=== PATIENT | male | born 1955 | race Caucasian/White ===

== ENCOUNTER → 2017-11-22 | Outpatient (CLI) | payer OTHER ==
[2017-11-22 15:08] LABS: Vitamin D 25 Hydroxy 74.3 ng/mL (30.0-100.0)
== END | disposition home or self-care (01) ==
LOC: LABWHC1 11-13 15:51
PROVIDERS: ATTEND Psychiatry & Neurology Neurology
DX: R25.1 Tremor, unspecified (principal); R53.83 Other fatigue
CPT/HCPCS: 36415; 82306; 82533; 82607; 84402; 84403

== ENCOUNTER → 2019-04-16 | Outpatient (CLI) | payer MEDICARE, BC ==
--- NOTE | 2019-04-17 10:20 | ECHOF ---
Referral Reason:I49.8 cardiac arrythia MEASUREMENTS -------- HEIGHT: 175.3 cm WEIGHT: 71.7 kg BP: 128/62 RVIDd: 2.8 cm (< 3.3) IVSd: 1.0 cm (0.6 - 1.1) LVIDd: 4.5 cm (3.9 - 5.3) LVPWd: 1.0 cm (0.6 - 1.1) IVSs: 1.6 cm LVIDs: 2.7 cm LVPWs: 1.6 cm LA Diam: 3.3 cm (2.7 - 3.8) LAESV Index (A-L): 29.09 ml/m Ao Diam: 3.4 cm (2.0 - 3.7) AV Cusp: 2.1 cm (1.5 - 2.6) MV EXCURSION: 18.330 mm (> 18.000) MV EF SLOPE: 76 mm/s (70 - 150) EPSS: 0.6 cm MV E James: 0.50 m/s MV DecT: 261 ms MV A James: 0.59 m/s MV E/A Ratio: 0.85 RAP: 5.00 mmHg RVSP: 24.94 mmHg FINDINGS -------- Sinus rhythm. This was a technically good study. The left ventricular size is normal. Left ventricular wall thickness is normal. Overall left vent ricular systolic function is normal with, an EF between 60 - 65 %. The right ventricle is normal in size. LA is midly dilated 29-33ml/m2. The right atrium is normal in size. Interatrial and interventricular septum intact. The aortic valve is trileaflet and appears structurally normal. There is trace to mild mitral regurgitation. Mild tricuspid regurgitation present. Right ventricular systolic pressure is normal at < 35 mmHg. Trace/mild (physiologic) pulmonic regurgitation. The aortic root size is normal. Normal inferior vena cava with normal inspiratory collapse consistent with estimated right atrial pre ssure of 5 mmHg. There is no pericardial effusion. CONCLUSIONS -------- 1. Sinus rhythm. 2. This was a technically good study. 3. The left ventricular size is normal. 4. Left ventricular wall thickness is normal. 5. Overall left ventricular systolic function is normal with, an EF between 60 - 65 %. 6. The right ventricle is normal in size. 7. LA is midly dilated 29-33ml/m2. 8. The right atrium is normal in size. 9. Interatrial and interventricular septum intact. 10. The aortic valve is trileaflet and appears structurally normal. 11. There is trace to mild mitral regurgitation. 12. Mild tricuspid regurgitation present. 13. Right ventricular systolic pressure is normal at < 35 mmHg. 14. Trace/mild (physiologic) pulmonic regurgitation. 15. The aortic root size is normal. 16. Normal inferior vena cava with normal inspiratory collapse consistent with estimated right atrial pressure of 5 mmHg. 17. There is no pericardial effusion. HYDROSTATIC TESTER: Tomasa Mayer RDCS
== END | disposition home or self-care (01) ==
LOC: RADECHMAIN 13:50
PROVIDERS: ATTEND Family Medicine
DX: I08.1 Rheumatic disorders of both mitral and tricuspid valves (principal)
CPT/HCPCS: 93306

== ENCOUNTER → 2022-06-14 | Outpatient (CLI) | payer MEDICARE ==
--- NOTE | 2022-06-14 12:05 | MR ---
EXAMINATION TYPE: MR brain wo/w con DATE OF EXAM: 06/14/2022 COMPARISON: MRI brain 11/03/2014. HISTORY: Balance issues. TECHNIQUE: Multiplanar, multisequence images of the brain and brainstem is performed without and with IV contras t, utilizing 8 mL intravenous Gadavist . FINDINGS: Diffusion weighted images demonstrate no evidence of a recent infarct or other diffusion ab normality. There is no extra-axial fluid collection. Scattered T2/FLAIR hyperintensities in the denise ventricular and subcortical white matter which is stable to marginally progressed from prior examinat ion. The ventricular system and cisternal spaces are normal in size and appearance. The brain volume is age appropriate. No abnormal contrast enhancement. Extensive Virchow-Wilber spaces are noted. Midline structures demonstrate normal morphology. The craniocervical junction appears within normal limits. Post contrast images demonstrate no abnormal enhancement. The dural venous sinuses appear pa tent. The visualized sinuses are clear and the globes are intact. IMPRESSION: 1. No acute ischemia or mass identified. 2. Age-related atrophy with nonspecific white matter changes which is stable to marginally progresse d from prior examination likely related to chronic small vessel ischemia.
== END | disposition home or self-care (01) ==
LOC: RADMRIMAIN 10:38
PROVIDERS: ATTEND Psychiatry & Neurology Neurology
DX: G31.9 Degenerative disease of nervous system, unspecified (principal)
CPT/HCPCS: 70553; A9585

== ENCOUNTER 2022-07-06 10:35 | Emergency (ER) | payer MEDICARE ==
[2022-07-06 10:52] VITALS: RESP 20; TEMP 98.4
--- NOTE | 2022-07-06 12:15 | ED ---
Lower Extremity Injury HPI - General Chief Complaint: Extremity Injury, Lower Stated Complaint: lt foot toe injury Time Seen by Provider: 07/06/22 11:57 Source: patient, family, RN notes reviewed, old records reviewed Mode of arrival: wheelchair Limitations: no limitations - History of Present Illness Initial Comments: 67-year-old male presents to the emergency room from urgent care after hyperflexion of his left great toe while walking causing open wound. Denies any other injury. Was sent by urgent care after x-rays told open fracture. Was given tetanus, and 1 gram Rocephin IM. Pressure dressing was applied due to bleeding at urgent care. Patient does have history of tremors, neuropathy, muscular atrophy, right foot drop and hypertension. Does take an aspirin a day. MD Complaint: foot injury (left great toe) -: hour(s) (6) Injury: Foot: Left (great toe) Type of Injury: hyperflexion Severity scale (1-10): 2 Worsens With: movement, palpation Context: other (trip) Treatments Prior to Arrival: other (Urgent care x-ray, tetanus and IM ant ibiotics) - Related Data Home Medications Medication Instructions Recorded Confirmed Carbidopa-Levodopa 25-250 mg 1 tab PO QID 07/06/22 07/06/22 [Sinemet 25-250] Cholecalciferol [Vitamin D3 (125 125 mcg PO DAILY 07/06/22 07/06/22 Mcg = 5000 Iu)] Losartan-Hctz 50-12.5 mg [Hyzaar 1 tab PO DAILY 07/06/22 07/06/22 50-12.5] Omeprazole 40 mg PO DAILY 07/06/22 07/06/22 Vitamin B Complex 1 cap PO DAILY 07/06/22 07/06/22 rOPINIRole HCL [rOPINIRole HCL ER 6 mg PO TID 07/06/22 07/06/22 (XL)] Previous Rx's Medication Instructions Recorded Cephalexin [Keflex] 500 mg PO Q6HR #40 cap 07/06/22 Allergies Allergy/AdvReac Type Severity Reaction Status Date / Time No Known Allergies Allergy Verified 07/06/22 14:54 Review of Systems ROS Statement: Those systems with pertinent positive or pertinent negative responses have been documented in the HPI. ROS Other: All systems not noted in ROS Statement are negative. Past Medical History Past Medical History: Hypertension Additional Past Medical History / Comment(s): Tremors, MA History of Any Multi-Drug Resistant Organisms: None Reported Additional Past Surgical History / Comment(s): jaw surgery Past Anesthesia/Blood Transfusion Reactions: No Reported Reaction Past Psychological History: No Psychological Hx Reported Smoking Status: Never smoker Past Alcohol Use History: None Reported Past Drug Use History: None Reported General Exam Limitations: no limitations, physical limitation (Muscular atrophy and tremors) General appearance: alert, in no apparent distress Head exam: Present: atraumatic Respiratory exam: Absent: respiratory distress, accessory muscle use Cardiovascular Exam: Present: regular rate Left Foot/Toe exam: Present: tenderness, laceration, ecchymosis, deformity (Left great toe DIP fracture) Neurovascular tendon exam: Absent: sensory deficit, extremity cold to touch Gait: not tested/not observed Neurological exam: Present: alert, oriented X3 Psychiatric exam: Present: normal affect, normal mood Skin exam: Present: warm, dry, normal color. Absent: cyanosis, diaphoretic Course Vital Signs 07/06/22 07/06/22 10:49 15:02 Temperature 98.4 F Pulse Rate 85 79 Respiratory 20 20 Rate Blood Pressure 137/74 132/85 O2 Sat by Pulse 97 99 Oximetry - Reevaluation(s) Reevaluation #1: 07/06/22 12:57 Spoke with Dario Montelongo regarding patient. Plan is to reduce dislocation of the great toe and suture wound. Put in ortho shoe. Place patient on Keflex 500 QID for 10 days and follow-up in the office. Time: 12:57 Procedures - Laceration Laceration #1 Consent Obtained: verbal consent Indication: laceration Site: foot (great toe) Description: linear Depth: simple, single layer Anesthetic Used: lidocaine 1% Anesthesia Technique: local infiltration, nerve block (digital) Pre-repair: irrigated extensively Type of Sutures: nylon Size of Sutures: 4-0, 5-0 Number of Sutures: 5 Technique: simple, interrupted Patient Tolerated Procedure: well Medical Decision Making - Medical Decision Making Patient presents from urgent care for possible open fracture of left first metatarsal. Tetanus shot was given at the urgent care along with 1 g of Rocephin IM prior to arrival. He was offered pain medication and declined. 5 sutures to secure nail bed and close laceration after extensive irrigation. Sensation intact. Patient does have decreased motor movement chronically which is the reason for his injury. Foot drop on the right that is chronic. XR interpreted by me shows no acute fracture, disolocation of first MTP joint. I did speak with orthopedics who recommended reduction, antibiotics, ,post-op shoe and follow-up Reduction performed using digital block. Repeat XR shows successful reduction. Radiologist impression no acute fracture or dislocation. Dr. Khan at bedside. Patient's sensation is intact. Bleeding is controlled. Instructed to take antibiotics as prescribed, wear the ortho shoe and follow-up with orthopedics on Saturday. Patient and family members are agreeable to this plan of care. Instructed to return to the emergency room with any new or concerning symptoms. Case discussed with Dr. Khan - Lab Data Result diagrams: 07/06/22 12:37 07/06/22 12:37 Lab Results 07/06/22 07/06/22 07/06/22 Range/Units 12:37 12:37 12:37 WBC 8.0 (3.8-10.6) k/uL RBC 4.82 (4.30-5.90) m/uL Hgb 15.7 (13.0-17.5) gm/dL Hct 46.0 (39.0-53.0) % MCV 95.3 (80.0-100.0) fL MCH 32.6 (25.0-35.0) pg MCHC 34.2 (31.0-37.0) g/dL RDW 13.1 (11.5-15.5) % Plt Count 225 (150-450) k/uL MPV 8.0 Neutrophils % 74 % Lymphocytes % 19 % Monocytes % 4 % Eosinophils % 1 % Basophils % 0 % Neutrophils # 5.9 (1.3-7.7) k/uL Lymphocytes # 1.5 (1.0-4.8) k/uL Monocytes # 0.4 (0-1.0) k/uL Eosinophils # 0.1 (0-0.7) k/uL Basophils # 0.0 (0-0.2) k/uL PT 10.7 (9.0-12.0) sec INR 1.0 (<1.2) APTT 25.7 (22.0-30.0) sec Sodium 138 (137-145) mmol/L Potassium 4.1 (3.5-5.1) mmol/L Chloride 104 (98-107) mmol/L Carbon Dioxide 27 (22-30) mmol/L Anion Gap 7 mmol/L BUN 21 H (9-20) mg/dL Creatinine 0.59 L (0.66-1.25) mg/dL Est GFR (CKD-EPI)AfAm >90 (>60 ml/min/1.73 sqM) Est GFR (CKD-EPI)NonAf >90 (>60 ml/min/1.73 sqM) Glucose 111 H (74-99) mg/dL Calcium 9.0 (8.4-10.2) mg/dL Disposition Clinical Impression: Dislocation of great toe, left, open Disposition: HOME SELF-CARE Condition: Good Instructions (If sedation given, give patient instructions): Laceration (ED), Foot Contusion (ED) Additional Instructions: Wear postop shoe as provided. Change dressing once a day. Take antibiotics as prescribed. Follow-up with orthopedics on Saturday. Return to the emergency room with any new or concerning symptoms including fevers, increased pain or bleeding. Prescriptions: Cephalexin [Keflex] 500 mg PO Q6HR #40 cap Is patient prescribed a controlled substance at d/c from ED?: No Referrals: David Lizarraga MD [Primary Care Provider] - 1-2 days Leopoldo Montelongo PAC [PHYSICIAN AREA OPERATIONS DIRECTOR] - 1-2 days Time of Disposition: 14:42
--- NOTE | 2022-07-06 12:34 | XR ---
EXAMINATION TYPE: XR foot complete LT DATE OF EXAM: 07/06/2022 CLINICAL HISTORY: pain TECHNIQUE: Frontal, lateral and oblique images of the left foot are obtained. COMPARISON: None. FINDINGS: On one of the views obtained there is cortical lucency traversing the distal phalanx of the left great toe. Nondisplaced fractures to exclude. This is not confirmed on additional views. Soft t issue injury noted. IMPRESSION: As above
[2022-07-06] MEDS ORDERED: LIDOCAINE 1% INJ 10MG/ML (30 ML VIAL-PF) SQ ONE (12:55)
[2022-07-06 13:00] LABS: Basophils % (A) 0 %; Eosinophils # (A) 0.1 k/uL (0-0.7); Eosinophils % (A) 1 %; HGB 15.7 gm/dL (13.0-17.5); Lymphocytes # (A) 1.5 k/uL (1.0-4.8); Lymphocytes % (A) 19 %; MCH 32.6 pg (25.0-35.0); MCHC 34.2 g/dL (31.0-37.0); MCV 95.3 fL (80.0-100.0); Monocytes # (A) 0.4 k/uL (0-1.0); Monocytes % (A) 4 %; Neutrophils # (A) 5.9 k/uL (1.3-7.7); Neutrophils % (A) 74 %; Platelet Count 225 k/uL (150-450); RBC 4.82 m/uL (4.30-5.90); RDW 13.1 % (11.5-15.5)
[2022-07-06 13:09] LABS: African American GFR (CKD) >90 (>60 ml/min/1.73 sqM); Anion Gap 7 mmol/L; Blood Urea Nitrogen 21 mg/dL (9-20); Carbon Dioxide 27 mmol/L (22-30); Chloride 104 mmol/L (98-107); Glucose 111 mg/dL (74-99); Non-African American GFR(CKD) >90 (>60 ml/min/1.73 sqM); Potassium 4.1 mmol/L (3.5-5.1); Sodium 138 mmol/L (137-145)
[2022-07-06 13:24] LABS: Partial Thromboplastin Time 25.7 sec (22.0-30.0); Prothrombin Time 10.7 sec (9.0-12.0)
--- NOTE | 2022-07-06 14:32 | XR ---
EXAMINATION TYPE: XR foot limited LT DATE OF EXAM: 07/06/2022 CLINICAL HISTORY: pain TECHNIQUE: Frontal, lateral images of the left foot are obtained. COMPARISON: None. FINDINGS: There is no acute fracture/dislocation evident. Mild degenerative narrowing various PIP an d DIP joints. The overlying soft tissue appears unremarkable. IMPRESSION: There is no acute fracture or dislocation. ICD 10 NO FRACTURE, INITIAL EVALUATION
[2022-07-06] MEDS ORDERED: GELATIN SPONGE,ABSORB (SMALL) 1 EACH SPONGE TOPICAL STA (14:41)
[2022-07-06 15:03] VITALS: BP 132/85; PULSE 79
== END 2022-07-06 15:03 | disposition home or self-care (01) ==
LOC: EC 10:35
DX: S93.105A Unspecified dislocation of left toe(s), initial encounter (principal); I10 Essential (primary) hypertension; X58.XXXA Exposure to other specified factors, initial encounter
CPT/HCPCS: 36415; 80048; 85025; 85610; 85730; 73620; 73630; 12001; 99283; J2001

== ENCOUNTER → 2024-08-11 | Outpatient (CLI) | payer MEDICARE ==
[2024-08-11 09:17] LABS: African American GFR (CKD) >90 (>60 ml/min/1.73 sqM); Blood Urea Nitrogen 21 mg/dL (9-20); Non-African American GFR(CKD) >90 (>60 ml/min/1.73 sqM)
--- NOTE | 2024-08-11 10:30 | CT ---
EXAMINATION TYPE: CT abdomen pelvis wo/w con CT DLP: 2318.70 mGycm, Automated exposure control for dose reduction was used. DATE OF EXAM: 08/11/2024 10:12 AM COMPARISON: No direct comparisons. CLINICAL INDICATION:Male, 69 years old with history of K42.9, R10.32 LLQ PAIN; TECHNIQUE: Standard CT of the abdomen and pelvis before and after the uneventful administration of 100 mL of Isovue-370 intravenously. Oral contrast was administered. Coronal and sagittal reformats we re performed. BB marker was placed at region of concern. FINDINGS: LOWER CHEST: Unremarkable ABDOMEN LIVER: Unremarkable GALLBLADDER AND BILE DUCTS: Unremarkable. PANCREAS: Unremarkable. SPLEEN: Unremarkable. ADRENAL GLANDS: Unremarkable. KIDNEYS AND URETERS: No evidence of hydronephrosis or renal calculus. The kidneys enhance symmetrical ly. Contrast is demonstrated within both collecting systems on the delayed phase. PELVIS BLADDER: Unremarkable REPRODUCTIVE: Unremarkable. ABDOMEN & PELVIS STOMACH AND BOWEL: Stomach and duodenum are unremarkable. Enteric contrast reaches the ascending colo n. Mild amount of stool is present throughout the colon. No focal bowel wall thickening or surroundin g inflammatory changes. Distal colon. Scattered diverticula without surrounding inflammatory changes. The appendix is within normal limits. No evidence of bowel obstruction. PERITONEUM: No evidence of pneumoperitoneum or free fluid. VASCULATURE: Moderate atherosclerotic calcifications are present throughout the abdominal aorta and i ts branches. No evidence of aortic aneurysm. MUSCULOSKELETAL: No acute osseous abnormalities. Mild S-shaped scoliotic curvature of the thoracolumb ar spine. Mild multilevel degenerative disc disease. LYMPH NODES: No evidence for lymphadenopathy. SOFT TISSUE/ABDOMINAL WALL: Rectus diastases. Left lateral abdominal wall fat-containing lesion with an anterior calcification measuring 8 mm. The overall lesion measures 13.6 x 3.4 x 7.8 cm in AP, TV, CC dimensions (series 7, image 45). This is at site of palpable marker. This lays along the left late ral wall musculature without invasion. IMPRESSION: 1. No acute intra-abdominal/pelvic process. 2. Left lateral abdominal wall 13.6 cm fat-containing lesion with small calcification. This is most c onsistent with a lipoma and is at site of palpable marker. 3. Colonic diverticulosis without evidence for acute diverticulitis. [facility], , 08/11/2024 10:27 AM
== END | disposition home or self-care (01) ==
LOC: RADCTMAIN 08:05
PROVIDERS: ATTEND Surgery
DX: K42.9 Umbilical hernia without obstruction or gangrene (principal); K57.30 Diverticulosis of large intestine without perforation or abscess without bleeding; D17.79 Benign lipomatous neoplasm of other sites
CPT/HCPCS: 82565; 84520; 74178; 36415; Q9967